=== PATIENT | male | born 1950 | race Caucasian/White ===

== ENCOUNTER → 2024-10-11 11:07 | Outpatient (REF) | payer MEDICARE, SELFPAY | LOC: HWRAD 11:07 | PROVIDERS: ATTENDING PHYSICIAN Student in an Organized Health Care Education/Training Program; FAMILY PHYSICIAN Family Medicine | DX: J45.50 Severe persistent asthma, uncomplicated (principal); R09.82 Postnasal drip | CPT/HCPCS: 71046 ==